=== PATIENT | female | born 1990 | race Two or more races ===

== ENCOUNTER 2020-06-15 10:48 | Emergency (ER) | payer OTHER ==
[~2020-06-15] VITALS: Ht 162.6 cm; Wt 64.0 kg
[2020-06-15] MEDS ORDERED: ONDANSETRON 4MG ODT PO ONE (11:00)
[2020-06-15 12:29] VITALS: BP 122/82
== END 2020-06-15 12:29 | disposition home or self-care (01) ==
LOC: ER 10:48
DX: U07.1 COVID-19 (principal); R11.0 Nausea; R05 Cough; R50.9 Fever, unspecified; M79.10 Myalgia, unspecified site; Z88.8 Allergy status to other drugs, medicaments and biological substances
CPT/HCPCS: 71045; 81025; 99284; C9803; Q0162; U0003

== ENCOUNTER 2025-09-23 00:09 | Emergency (ER) | payer OTHER ==
[~2025-09-23] VITALS: Ht 157.5 cm; Wt 61.0 kg
[2025-09-23 00:20] VITALS: BP 123/75; PULSE 112; RESP 18; TEMP 36.9; O2SAT 99
== END 2025-09-23 01:15 | disposition left against medical advice (07) ==
LOC: ER 00:09
DX: S01.81XA Laceration without foreign body of other part of head, initial encounter (principal); Y04.0XXA Assault by unarmed brawl or fight, initial encounter; Y93.89 Activity, other specified; Y92.89 Other specified places as the place of occurrence of the external cause; Y99.8 Other external cause status
CPT/HCPCS: 99281